=== PATIENT | male | born 1990 | race Caucasian/White ===

== ENCOUNTER → 2019-04-03 | Outpatient (CLI) | payer OTHER ==
[~2019-04-03] MED LIST: GADOTERATE 5 MMOL/10ML VIAL. INT ART ONE; IOHEXOL 300 MG/ML 50 ML VIAL. INT ART ONE; LIDOCAINE 1% Multi-Dose 20 ML VIAL. ID ONE
--- NOTE | 2019-04-03 15:33 | KCIC ---
Right shoulder injection using fluoroscopic guidance, prior to MRI. Indication: Right shoulder pain. Technique: The procedure was explained to the patient as were potential risks. All questions were answered. Informed written consent was obtained. A timeout was performed which confirmed the name of the patient and the date of and the type of procedure and the side of the procedure. Allergies to medication and contrast reviewed. An appropriate skin emelyn was made on the right shoulder using fluoroscopic guidance. The right shoulder was prepped and draped in the usual sterile manner. Following administration of 3 cc of 1% lidocaine for local anesthetic, a 22-gauge needle was advanced into the right glenohumeral joint from an anterior approach. Following negative aspiration, 20 cc of a solution of 10 cc Omnipaque 300 contrast, 10 cc normal saline, and 0. 2 cc gadolinium was injected intra-articularly under fluoroscopic observation without difficulty. The contrast confirmed intra-articular position of the needle. Fluoroscopic spot view was performed. The needle was removed. There was good hemostasis at the injection site. The patient left in stable condition without immediate complication. The patient was given postprocedural instructions, and instructed to contact us or the ER if there are any complications. No apparent fluoroscopic abnormality is identified.. Impression: Successful right shoulder joint injection. MRI to follow. Electronically signed by: Jorge A Woods MD (04/03/2019 3:30 PM) [id number]
--- NOTE | 2019-04-03 15:40 | KCIC ---
MRI STUDY RIGHT SHOULDER ARTHROGRAM Clinical indications: Chronic right shoulder pain. Prior labral tear and surgery. TECHNIQUE: After intra-articular injection of gadolinium, post arthrogram MRI sequences of the right shoulder were performed in all 3 planes. An additional ABER sequence was obtained. COMPARISON: None available. FINDINGS: A small partial articular surface tear of the anterior lateral aspect of the supraspinatus tendon at the attachment to the greater tubercle is seen. This extends through less than 50% thickness of the tendon here and the defect measures 4 mm. No complete rotator cuff tear is seen. Subscapularis tendon is intact. The tendon of the long head of the biceps is intact. No subdeltoid or subacromial bursitis is evident. Postoperative changes of the right AC joint are seen. There is moderate degenerative cystic change of the posterior lateral aspect of the humeral head. This may be secondary to chronic impingement. Type II acromial process is seen. No other marrow infiltrative process is seen. No bone contusion or fracture is evident elsewhere. No significant spurring of the glenohumeral joint is seen. No loose body is seen. Small amount of contrast is seen extending into the superior glenoid labrum consistent with small labral tear here. There is irregularity and complex tears of the posterior labrum. No paralabral ganglion cyst or spinoglenoid notch ganglion cyst is seen. IMPRESSION: Complex tear and irregularity of the posterior glenoid labrum. Small SLAP lesion of the superior glenoid labrum. Chronic impingement of the posterior lateral aspect of the humeral head. Small shallow partial articular surface tear of the anterolateral aspect of the supraspinatus tendon attachment to the greater tubercle. Electronically signed by: Jorge A Woods MD (04/03/2019 3:37 PM) [id number]
--- NOTE | 2019-04-03 16:32 | KCIC ---
Left shoulder injection using fluoroscopic guidance, prior to MRI. Indication: Left shoulder pain. History of previous labral shoulder surgery. Technique: The procedure was explained to the patient as were potential risks. All questions were answered. Informed written consent was obtained. A timeout was performed which confirmed the name of the patient and the date of and the type of procedure and the side of the procedure. Allergies to medication and contrast reviewed. An appropriate skin emelyn was made on the left shoulder using fluoroscopic guidance. The left shoulder was prepped and draped in the usual sterile manner. Following administration of 3 cc of 1% lidocaine for local anesthetic, a 22-gauge needle was advanced into the left glenohumeral joint from an anterior approach. Following negative aspiration, 20 cc of a solution of 10 cc Omnipaque 300 contrast, 10 cc normal saline, and 0. 2 cc gadolinium was injected intra-articularly under fluoroscopic observation without difficulty. The contrast confirmed intra-articular position of the needle. Fluoroscopic spot views were taken. The needle was removed. There was good hemostasis at the injection site. The patient left in stable condition without immediate complication. The patient was given postprocedural instructions, and instructed to contact us or the ER if there are any complications. No apparent fluoroscopic abnormality is identified.. Total fluoroscopic time: 24 seconds. Total postoperative spot views: 3. Impression: Successful left shoulder joint injection. MRI to follow. Electronically signed by: Jorge A Woods MD (04/03/2019 4:29 PM) [id number]
--- NOTE | 2019-04-03 16:39 | KCIC ---
MRI LEFT SHOULDER ARTHROGRAM Clinical indications: Chronic left shoulder pain. History of prior labral repair. TECHNIQUE: After intra-articular injection of gadolinium, post arthrogram MRI sequences of the left shoulder were performed in all 3 planes. An ABER sequence was obtained. COMPARISON: None available. FINDINGS: No rotator cuff tear is seen. Subscapularis tendon is intact. The tendon of long of the biceps is intact. No subdeltoid or subacromial bursitis is seen. Postoperative changes of the right AC joint are seen. Mild chronic cystic change of the posterior lateral aspect of the humeral head is seen secondary to old chronic impingement. Otherwise no bone contusion or fracture or marrow infiltrative process is seen. No spurring of the glenohumeral joint is seen. The articular cartilage is unremarkable. There is a tear of the posterior glenoid labrum which extends inferiorly and superiorly. No paralabral ganglion cyst or spinoglenoid notch ganglion cyst is seen. IMPRESSION: Tear of the posterior glenoid labrum which extends superiorly and inferiorly. No rotator cuff tear. Electronically signed by: Jorge A Woods MD (04/03/2019 4:36 PM) [id number]
== END | disposition home or self-care (01) ==
LOC: KCIC 12:39
PROVIDERS: ATTEND Physician Assistant Medical
DX: S43.492A Other sprain of left shoulder joint, initial encounter (principal); S43.431A Superior glenoid labrum lesion of right shoulder, initial encounter; S46.011A Strain of muscle(s) and tendon(s) of the rotator cuff of right shoulder, initial encounter; E78.5 Hyperlipidemia, unspecified; G89.29 Other chronic pain; X58.XXXA Exposure to other specified factors, initial encounter; Y93.89 Activity, other specified; Y92.89 Other specified places as the place of occurrence of the external cause; Y99.8 Other external cause status
CPT/HCPCS: 73040; 73222; A9575; Q9967